=== PATIENT | male | born 1980 | race Caucasian/White ===

== ENCOUNTER 2017-03-28 19:36 | Emergency (ER) | payer OTHER ==
[~2017-03-28] VITALS: Ht 172.7 cm; Wt 111.1 kg
[2017-03-28] MEDS ORDERED: MOTRIN IB200 M1 PO (20:05)
[2017-03-28] MEDS ORDERED: SULFAMETHOXAZO1 EAC1 PO (20:05)
--- NOTE | 2017-03-28 20:05 | ED GENERAL ADULT ---
History of Present Illness General Chief Complaint: General Adult Stated Complaint: PT FACE IS SWOLLEN Source: patient Exam Limitations: no limitations Allergies Coded Allergies: No Known Allergies (03/28/17) Triage Note: PT TOTRIAGE WITH C/O SWELLING TO UPPER LIP AND RIGHT SIDE OF FACE S/P POPPED PIMPLE IN RIGHT NOSTRIL LAST NIGHT. VSS. TEMP 99.1 IN TRIAGE. Triage Nurses Notes Reviewed? yes Onset: Gradual Duration: day(s): (1) Timing: no prior history Injury Environment: home Severity: severe Severity Numbers: 9 No Modifying Factors: none HPI: Patient is a 36-year-old male presenting to the emergency department with chief complaint of facial swelling and redness and pain meds been getting worse over the past 24 hours. He reports that he drained a cyst in his left nostril last night and woke up with these symptoms. He reports a lot of purulent discharge out of the cyst. He noticed that his upper lip and face feels swollen and tight. Denies any nausea or vomiting. Denies being bitten by anything. Denies any new exposures. He reports that today he felt generalized malaise. Positive chills but no fevers. Denies taking anything to help with symptoms. No history of similar symptoms in the past. Denies trouble breathing or swallowing. (RAFI GONZALEZ,FREYA) Vital Signs & Intake/Output Vital Signs & Intake/Output Vital Signs Date Time Temp Pulse Resp B/P B/P Pulse O2 O2 Flow FiO2 Mean Ox Delivery Rate 03/28 2159 88 138/78 03/28 2049 98 Room Air 03/28 2029 96 150/100 03/28 1939 99.1 96 18 158/100 99 Room Air ED Intake and Output 03/29 0000 03/28 1200 Intake Total Output Total Balance Patient 245 lb Weight Weight Reported by Patient Measurement Method Reconcile Medications Amoxicillin/Potassium Clav (Augmentin 875-125 Tablet) 875 MG-125 MG TABLET 1 TAB PO BID CELLULITIS Ibuprofen (Motrin Ib) 200 MG TABLET 2-3 TAB PO PRN PAIN (Reported) Methylprednisolone. (Medrol) 4 MG TAB.DS.PK 1 DP PO AD ALLERGIC REACTION 6 on day 1 then reduce by one tablet daily until gone Sulfamethoxazole/Trimethoprim (Sulfamethoxazole-Tmp Ds Tablet) 800 MG-160 MG TABLET 1 TAB PO BID ANTIBIOTIC (Reported) (NANCY CROSS,KAYLIN) Past History Travel History Traveled to [place] past 21 day No Medical History Any Pertinent Medical History? see below for history Surgical History Surgical History: non-contributory Psychosocial History What is your primary language Danish Tobacco Use: Never used Family History Hx Contributory? No (FREYA HUGHES) Review of Systems Review of Systems Constitutional: Reports: chills. Comments Review of systems: See HPI, All other systems negative. Constitutional, no fever or weight loss HEENT: No visual changes no sore throat no congestion Cardiovascular: No chest pain ,palpitation ,NO ORTHOPNEA Skin, no jaundice Respiratory: No dyspnea cough sputum or hemoptysis GI: No nausea no vomiting : No dysuria No hematuria Muscle skeletal: no back pain, no neck pain, Neurologic: No numbness no confusion NO NEVAREZ Psych: No stress anxiety or depression,. Heme/endocrine: No bruising no bleeding no polyuria or polydipsia Immunology: No splenectomy or history of AIDS (FREYA HUGHES) Physical Exam Physical Exam General Appearance: well developed/nourished, no apparent distress, alert, awake , comfortable Comments: Well-developed well-nourished person in no acute distress HEENT: Face appears slightly edematous. Pupils equally round and reactive to light and accommodation. Conjunctivae are injected slightly bilaterally. Nose is atraumatic. External auditory canal and Tympanic membranes clear. Pharynx normal. No swelling or edema. Mild tenderness to palpation over the maxillary sinuses bilaterally. Neck: Supple, no lymphadenopathy, normal range of motion without pain or tenderness Back: Nontender Cardiovascular: Regular rate and rhythms no murmurs rubs or gallops, normal JVP Respiratory: Chest nontender. No respiratory distress.breath sounds clear to auscultation bilaterally Extremity: No edema, no calf tenderness to palpation, normal and equal pulses. Neuro: Alert oriented x3, motor sensory normal Skin: Face appears to be bright red, edema noted to upper lip. There is a small raised erythematous lesion noted in the left naris with small white head in place. Psych: Mood and affect is normal, memory and judgment is normal. Core Measures ACS in differential dx? No CVA/TIA Diagnosis: No Severe Sepsis Present: No Septic Shock Present: No (FREYA HUGHES) Progress Differential Diagnoses I considered the following diagnoses in my evaluation of the patient: Allergic reaction, cellulitis, sinus abscess, ANGIOEDEMA Diagnostic Imaging: Viewed by Me: CT Scan. Discussed w/RAD: CT Scan. Initial ED EKG: none Comments: GIVEN SOLUMEDROL, BENADRYL WITH SIGNIFICANT RELIEF. BLOOD WORK UNREMARKABLE , CT UNREMARKABLE. EDUCATD ON SIGNS AND SYMPTOMS TO RETURN. NO SIGNS OF AIRWAY COMPRIMISE. (RAFI GONZALEZ,FREYA) Plan of Care: Orders Procedure Date/time Status BLOOD CULTURE 03/28 2029 Active LACTIC ACID 03/28 2029 Complete COMPREHENSIVE METABOLIC PANEL 03/28 2029 Complete CBC WITHOUT DIFFERENTIAL 03/28 2029 Complete Laboratory Tests 03/28/172034: Lactic Acid Cancelled 03/28/172034: Anion Gap 14, Estimated GFR > 60, BUN/Creatinine Ratio 11.1, Glucose 103 H, Lactic Acid 0.7, Calcium 9.8, Total Bilirubin 1.9 H, AST 33, ALT 76 H, Alkaline Phosphatase 53, Total Protein 7.7, Albumin 4.9, Globulin 2.8, Albumin/ Globulin Ratio 1.8, CBC w Diff NO MAN DIFF REQ, RBC 5.00, MCV 85.4, MCH 29.3, RDW 12.8, MPV 10.2, Gran % 76.6 H, Lymphocytes % 15.1 L, Monocytes % 7.1, Eosinophils % 0.8, Basophils % 0.4, Absolute Granulocytes 7.5 H, Absolute Lymphocytes 1.5, Absolute Monocytes 0.7 H, Absolute Eosinophils 0.1, Absolute Basophils 0, PUBS MCHC 34.4 Microbiology 03/28 2048 BLOOD: Blood Culture - RECD 03/28 2035 BLOOD: Blood Culture - RECD Radiology Impression: No intranasal abscess. There is mild sinus disease of the ethmoid and maxillary sinuses. There is edema at the upper lip and infranasal region extending into the right and left cheek without abscess or fluid collection. (NANCY CROSS,KAYLIN) Departure Departure Time of Disposition: 2240 Disposition: HOME OR SELF CARE Condition: Stable Clinical Impression Primary Impression: Allergic reaction Qualifiers: Encounter type: initial encounter Qualified Code: T78.40XA - Allergy, unspecified, initial encounter Secondary Impressions: Cellulitis Qualifiers: Site of cellulitis: face Qualified Code: L03.211 - Cellulitis of face Referrals: MARILEE CROSS,JARRETT Miller (PCP/Family) Additional Instructions: Follow-up with your primary care physician call to make an appointment. Continue taking Benadryl as directed [id number]. Return for worsening symptoms or concerns. Take antibiotics and steroids as prescribed. Start STERIODS tomorrow YOU WERE given a dose of steroids here in the emergency department. Departure Forms: Customer Survey General Discharge Information (FREYA HUGHES) Departure Prescriptions: Current Visit Scripts Methylprednisolone. (Medrol) 1 DP PO AD #1 DP 6 on day 1 then reduce by one tablet daily until gone Amoxicillin/Potassium Clav (Augmentin 875-125 Tablet) 1 TAB PO BID #20 TAB PA/MASTER PILOT Co-Sign Statement Statement: ED Attending supervision documentation- I saw and evaluated the patient. I have also reviewed all the pertinent lab results and diagnostic results. I agree with the findings and the plan of care as documented in the PA's/MASTER PILOT's documentation. x I have reviewed the ED Record and agree with the PA's/MASTER PILOT's documentation. [] Additions or exceptions (if any) to the PAs/MASTER PILOT's note and plan are summarized below: [] (NANCY CROSS,KAYLIN) Critical Care Note Critical Care Note Critical Care Time: non-applicable (FREYA HUGHES)
[2017-03-28 20:48] LABS: ABSOLUTE BASOPHIL COUNT 0 /CUMM (0.0-0.2); ABSOLUTE EOSINOPHIL COUNT 0.1 /CUMM (0.0-0.7); ABSOLUTE GRANULOCYTE CT 7.5 /CUMM (1.4-6.5); ABSOLUTE LYMPH COUNT 1.5 /CUMM (1.2-3.4); ABSOLUTE MONOCYTE COUNT 0.7 /CUMM (0.10-0.60); BASOPHIL % 0.4 % (0.0-2.0); EOSINOPHIL % 0.8 % (0-5); GRANULOCYTE % 76.6 % (42.2-75.2); HEMATOCRIT 42.7 % (42-52); MEAN CORPUSCULAR HGB 29.3 PG (27.0-31.0); MEAN CORPUSCULAR HGB CONC 34.4 G/DL (33.0-37.0); MEAN CORPUSCULAR VOLUME 85.4 FL (80.0-94.0); MEAN PLATELET VOLUME 10.2 FL (7.4-10.4); PLATELET COUNT 163 /CUMM (130-400); RBC DISTRIBUTION WIDTH 12.8 % (11.5-14.5); WHITE BLOOD CELL COUNT 9.9 /CUMM (4.8-10.8)
[2017-03-28 21:59] VITALS: BP 138/78
[2017-03-28] MEDS ORDERED: AMOXICILLIN500 M3 PO (22:43)
[2017-03-28] MEDS ORDERED: MEDROL4 M2 PO (22:43)
[2017-03-28] MEDS ORDERED: AUGMENTIN 875-1 EACH PO (22:44)
--- NOTE | 2017-03-28 22:53 | CT SCAN REPORT ---
EXAMINATION: CT MAXILLOFACIAL WITH CONTRAST CLINICAL INFORMATION: Pain and swelling. Concern for intrasinus abscess COMPARISON: None TECHNIQUE: Multidetector helical imaging was performed in the axial plane with generation of coronal and sagittal reformatted images. The examination was performed after the administration of 95 mL of Optiray 320 intravenous contrast DLP: 857.6 mGy-cm FINDINGS: No intrasinus abscess or fluid collections. Small amount of mucosal thickening at the inferior right and left maxillary sinuses and scattered mucosal thickening in the ethmoid sinuses. The frontal sinuses and the sphenoid sinuses are normally aerated. There is soft tissue swelling at the midline in the upper lip and infranasal area extending to the right and left cheek. No abscess or fluid collection. No abscess involving the maxilla or the mandible. No bone destruction. Etiology for the inflammatory change of the infra nasal region uncertain. The orbital globes and retrobulbar are structures are normal. The nasopharynx and oropharynx normal. No prevertebral soft tissue swelling. No lymphadenopathy. Fat planes of the neck are normal. No abnormal enhancing lesion. The partially visualized intracranial structures are normal. IMPRESSION: No intranasal abscess. There is mild sinus disease of the ethmoid and maxillary sinuses. There is edema at the upper lip and infranasal region extending into the right and left cheek without abscess or fluid collection.
== END 2017-03-28 23:02 ==
LOC: ERH 19:36
PROVIDERS: Physician Assistant
DX: T78.40XA Allergy, unspecified, initial encounter (principal); J34.0 Abscess, furuncle and carbuncle of nose
CPT/HCPCS: 87040; 96374; 96375; J1200; J2930